=== PATIENT | female | born 2000 | race Caucasian/White ===

== ENCOUNTER 2021-01-17 17:38 | Inpatient (IN) ==
[2021-01-18 02:19] LABS: Influenza A PCR Negative (Negative); Influenza B PCR Negative (Negative); Resp. Syncytial Virus PCR Negative (Negative)
[2021-01-18 02:20] LABS: SARS-CoV-2 by PCR (In House) Negative (Negative)
[2021-01-18] MEDS ORDERED: Acetaminophen 325 MG TABLET PO PRN (02:22)
[2021-01-18] MEDS ORDERED: Haloperidol Lactate 5 MG/ML VIAL IM PRN (02:22)
[2021-01-18] MEDS ORDERED: traZODone 50 MG TABLET PO PRN (02:22)
[2021-01-18] MEDS ORDERED: MOM Conc 10 ML UD.LIQ PO PRN (02:22)
[2021-01-18] MEDS ORDERED: *HR* LORazepam 1 MG TABLET PO PRN (02:22)
[2021-01-18] MEDS ORDERED: haloperidoL 5 MG TABLET PO PRN (02:22)
[2021-01-18] MEDS ORDERED: hydrOXYzine pamoate 25 MG CAPSULE PO PRN (02:22)
[2021-01-18] MEDS ORDERED: Mag Hydrox/Al Hydrox/Simeth 30 ML UDC PO PRN (02:22)
[2021-01-18] MEDS ORDERED: *HR* LORazepam 2 MG/ML VIAL IM PRN (02:22)
[2021-01-18] MEDS: Venlafaxine XR (24 HR) 75 MG CAP.ER.24H PO SCH (15:07)
[2021-01-19] MEDS: Venlafaxine XR (24 HR) 75 MG CAP.ER.24H PO SCH (08:50)
[2021-01-19 09:35] VITALS: BP 118/87; PULSE 102; TEMP 98.5; O2SAT 95
== END 2021-01-19 13:15 | disposition home or self-care (01) | DRG 817 ==
LOC: EMEROOARM 17:38 → 1ANU 01-18 02:23
PROVIDERS: ADMIT Psychiatry & Neurology Psychiatry; ATTEND Psychiatry & Neurology Psychiatry